=== PATIENT | female | born 1950 | race Caucasian/White ===

== ENCOUNTER 2017-02-25 11:05 | Emergency (ER) | payer MEDICARE, OTHER ==
[2014-09-24 09:03] VITALS: BMI 27.3
[~2017-02-25 11:05] MED LIST: BACTROBAN NASAL1 GM NASAL; CYMBALTA60 MG PO; ELAVIL25 MG PO; ELIQUIS2.5 MG PO; HYDROCODONE-APA1 TAB PO; KLOR-CON M2020 MEQ PO; LASIX20 MG PO; PERCOCET 10/3251 TA1 PO; SOMA350 MG PO; ULTRAM50 MG PO
[2017-02-25 12:02] LABS: BASOPHILS 0.5 % (0-2); EOSINOPHILS 0.7 % (0-7); HEMATOCRIT 47.5 % (36.0-48.0); HEMOGLOBIN 15.6 g/dL (12-16); IMMATURE GRANULOCYTES 0.2 % (0-5); LYMPHOCYTES 16.6 % (15-50); MCH 30.6 pg (26.0-34.0); MCHC 32.8 g/dL (31.0-37.0); MCV 93.3 fL (80.0-100.0); MEAN PLATELET VOLUME 9.5 fL (7.4-10.4); MONOCYTES 3.8 % (2-11); NEUTROPHILS 78.2 % (40-80); RBC 5.09 10x6/uL (4.00-5.40); WBC 13.3 10x3/uL (4.8-10.8)
[2017-02-25 12:04] LABS: PLATELET COUNT 576 10x3/uL (130-400)
[2017-02-25 12:19] LABS: ALBUMIN 4.2 g/dL (3.4-5.0); ANION GAP 16.7 mmol/L (8-16); BILIRUBIN - TOTAL 0.6 mg/dL (0.2-1.3); CALCIUM 9.5 mg/dL (8.5-10.1); CARBON DIOXIDE 26.2 mmol/L (21.0-32.0); CREATININE - SERUM 1.1 mg/dL (0.6-1.3); POTASSIUM - SERUM 3.9 mmol/L (3.5-5.1); PROTEIN - SERUM 7.9 g/dL (6.4-8.2)
[2017-02-25 13:44] LABS: APPEARANCE CLEAR (CLEAR); BILIRUBIN NEGATIVE (NEGATIVE); COLOR YELLOW (YELLOW); GLUCOSE NEGATIVE (NEGATIVE); KETONE SMALL mg/dL (NEGATIVE); NITRITE NEGATIVE (NEGATIVE); PROTEIN TRACE mg/dL (NEGATIVE); SPECIFIC GRAVITY 1.015 (1.005-1.020); UROBILINOGEN NORMAL (NORMAL)
[2017-02-25 13:56] LABS: EPITHELIAL CELLS OCC /hpf (0-5); RED CELLS - URINE OCC /hpf (0-5); WHITE CELLS - URINE OCC /hpf (0-5)
[2017-02-25 13:57] LABS: BACTERIA FEW /hpf (NONE SEEN)
== END 2017-02-25 15:10 | disposition home or self-care (01) ==
LOC: D.ER 11:05
PROVIDERS: Nurse Practitioner Family
DX: K52.9 Noninfective gastroenteritis and colitis, unspecified (principal); R11.10 Vomiting, unspecified; E86.0 Dehydration; K58.9 Irritable bowel syndrome, unspecified; M79.7 Fibromyalgia; F17.200 Nicotine dependence, unspecified, uncomplicated

== ENCOUNTER → 2017-03-03 08:18 | Outpatient (CLI) | payer MEDICARE, OTHER ==
[2014-09-24 09:03] VITALS: BMI 27.3
[~2017-03-03 08:18] MED LIST changes: +HYDROCODON-ACE1 EAC7 PO
== END | disposition home or self-care (01) ==
LOC: D.US 08:18
DX: R10.11 Right upper quadrant pain (principal)

== ENCOUNTER → 2017-03-29 12:16 | Outpatient (CLI) | payer MEDICARE, OTHER ==
[2014-09-24 09:03] VITALS: BMI 27.3
== END | disposition home or self-care (01) ==
LOC: D.NM 03-22 13:00
DX: R10.13 Epigastric pain (principal); K21.9 Gastro-esophageal reflux disease without esophagitis

== ENCOUNTER 2017-04-17 05:12 | Day surgery (SDC) | payer MEDICARE, OTHER ==
[2017-04-14 10:03] LABS: ANION GAP 16.8 mmol/L (8-16); CALCIUM 9.2 mg/dL (8.5-10.1); CARBON DIOXIDE 27.8 mmol/L (21.0-32.0); CREATININE - SERUM 1.1 mg/dL (0.6-1.3); POTASSIUM - SERUM 3.6 mmol/L (3.5-5.1)
[2017-04-14 10:56] LABS: HEMATOCRIT 41.6 % (36.0-48.0); HEMOGLOBIN 13.6 g/dL (12-16); MCH 30.2 pg (26.0-34.0); MCHC 32.7 g/dL (31.0-37.0); MCV 92.4 fL (80.0-100.0); MEAN PLATELET VOLUME 9.6 fL (7.4-10.4); RBC 4.5 10x6/uL (4.00-5.40); RDW 14.3 % (11.5-14.5); WBC 10.4 10x3/uL (4.8-10.8)
[~2017-04-17] VITALS: Ht 152.4 cm; Wt 70.3 kg
[~2017-04-17 05:12] MED LIST changes: -HYDROCODON-ACE1 EAC7 PO
[2017-04-17 07:12] VITALS: BP 148/71; Ht 152.4 cm; Wt 70.3 kg
[2017-04-17] MEDS ORDERED: HYDROCODON-ACE1 EAC7 PO (11:24)
== END 2017-04-17 15:10 | disposition home or self-care (01) ==
LOC: D.OPS 05:12 → D.PAN 08:55 → D.OPS 09:00 → D.PAN 09:00 → D.OPS 15:10
PROVIDERS: Anesthesiology
DX: K82.8 Other specified diseases of gallbladder (principal); Z01.812 Encounter for preprocedural laboratory examination

== ENCOUNTER → 2018-04-16 07:05 | Outpatient (CLI) | payer MEDICARE, OTHER ==
[2017-04-17 07:12] VITALS: BMI 30.3
[~2018-04-16 07:05] MED LIST changes: +HYDROCODON-ACE1 EAC7 PO
== END | disposition home or self-care (01) ==
LOC: D.MRI 07:05
DX: M51.86 Other intervertebral disc disorders, lumbar region (principal); M54.31 Sciatica, right side

== ENCOUNTER → 2020-07-07 08:53 | Outpatient (CLI) | payer MEDICARE, OTHER ==
[2017-04-17 07:12] VITALS: BMI 30.3
== END | disposition home or self-care (01) ==
LOC: D.CT 08:53
PROVIDERS: ATTEND Family Medicine
DX: R51.9 Headache, unspecified (principal); R42 Dizziness and giddiness